=== PATIENT | male | born 1965 ===

== ENCOUNTER 2018-03-14 10:27 | Emergency (ER) | payer BC, OTHER ==
[~2018-03-14] VITALS: Ht 167.6 cm; Wt 86.4 kg
[2018-03-14 10:42] VITALS: BP 152/71
== END 2018-03-14 11:39 | disposition home or self-care (01) ==
LOC: ED 11:33
DX: S46.912A Strain of unspecified muscle, fascia and tendon at shoulder and upper arm level, left arm, initial encounter (principal); V49.09XA Driver injured in collision with other motor vehicles in nontraffic accident, initial encounter; Y93.89 Activity, other specified; Y92.89 Other specified places as the place of occurrence of the external cause; Y99.8 Other external cause status
CPT/HCPCS: 99283